=== PATIENT | male | born 1985 | race Caucasian/White ===

== ENCOUNTER → 2016-07-26 | Emergency (ER) | payer OTHER ==
[~2016-07-26] MED LIST: HYOSCYAMINE SULFATE 0.125 MG *ODT PO ONE; LIDOCAINE VISCOUS 2% ORAL/TOP 20 ML UNIT-DOSE CUP MM ONE; MAG HYDROX/AL HYDROX/SIMETH 30 ML UNIT-DOSE CUP ONE; MAG HYDROX/AL HYDROX/SIMETH 30 ML UNIT-DOSE CUP PO ONE; PANTOPRAZOLE SODIUM 100 ML IVPB ONE; PANTOPRAZOLE SODIUM 40 MG in SODIUM CHLORIDE 100 ML IVPB ONE; SODIUM CHLORIDE 1,000 ML IV STA
[2016-07-26 11:22] VITALS: BP 113/73; PULSE 110; TEMP 98.2; BMI 41.3
--- NOTE | 2016-07-26 12:08 | PDOC ---
History of Present Illness - General Chief Complaint: Pain Stated Complaint: LT SIDE/ ABD PAIN Time Seen by Provider: 07/26/16 11:26 History Source: Patient Exam Limitations: No Limitations - History of Present Illness Travel History: No Initial Comments: 07/26/16 12:13 Patient with complaints of left epigastric and left upper quadrant dull pain after eating tacos 2 days ago and continues intermittently worsened with meals. Patient states no history of gastritis GERD, or PUD but states history of pancreatitis a few years ago secondary to call use. Patient denies heavy alcohol now stating he only drinks on the weekends and denies fever, chills, nausea, dizziness, recent change in weight, recent travel, recent illness. Patient denies change in bowel pattern, change in urine pattern, medical history , rash, or radiation of pain. Timing/Duration: reports: constant Quality: reports: moderate, aching, dullness Abdominal Pain Onset Location: reports: [facility] Pain Radiation: reports: no radiation Activities at Onset: reports: eating Aggravating Factors: improves with: Eating Alleviating Factors: improves with: None Past History - Past Medical History Allergies/Adverse Reactions: Allergies Allergy/AdvReac Type Severity Reaction Status Date / Time No Known Allergies Allergy Verified 07/26/16 11:21 Home Medications: Ambulatory Orders Fenofibrate 160 mg PO DAILY 03/26/15 Metformin HCl [Glucophage -] 850 mg PO DAILY 03/26/15 Nifedipine [Nifedical Xl] 60 mg PO DAILY 03/26/15 Lisinopril [Prinivil] 20 mg PO DAILY #30 tablet 03/29/15 Glipizide [Glipizide ER] 5 mg PO DAILY 11/07/15 Pantoprazole Sodium [Protonix] 40 mg PO DAILY #30 tablet. 07/26/16 Diabetes: Yes GI Disorders: Yes (DIVERTICULITIS, pancreatitis) HTN: Yes Hypercholesterolemia: Yes Kidney Stones: Yes - Psycho/Social/Smoking Cessation Hx Anxiety: No Suicidal Ideation: No Smoking History: Former smoker Have you smoked in the past 12 months: No Number of Cigarettes Smoked Daily: 6 If you are a former smoker, when did you quit?: 2 yrs Information on smoking cessation initiated: No Hx Alcohol Use: No Drug/Substance Use Hx: No Substance Use Type: Alcohol Hx Substance Use Treatment: No Patient Lives Alone: No Review of Systems - Review of Systems Able to Perform ROS?: Yes Constitutional: No: Symptoms Reported HEENTM: No: Symptoms Reported Respiratory: No: Symptoms reported Cardiac (ROS): No: Symptoms Reported ABD/GI: Yes: Indigestion, Abdominal cramping. No: Constipated, Diarrhea, Nausea , Poor Appetite, Poor Fluid Intake : No: Symptoms Reported, Flank Pain Musculoskeletal: No: Symptoms Reported Integumentary: No: Symptoms Reported Neurological: No: Symptoms reported Endocrine: No: Symptoms Reported Hematologic/Lymphatic: No: Symptoms Reported *Physical Exam - Vital Signs Last Vital Signs Temp Pulse Resp BP Pulse Ox 98.2 F 110 H 18 113/73 100 07/26/16 11:14 07/26/16 11:14 07/26/16 11:14 07/26/16 11:14 07/26/16 11:14 - Physical Exam General Appearance: Yes: Nourished, Appropriately Dressed. No: Apparent Distress Neck: positive: Rigid Respiratory/Chest: positive: Lungs Clear, Normal Breath Sounds. negative: Chest Tender, Respiratory Distress, Accessory Muscle Use Cardiovascular: positive: Regular Rhythm, Regular Rate. negative: Murmur Gastrointestinal/Abdominal: positive: Soft, Tenderness (luq and mild left epigastric tenderness. No rebound/guarding) Musculoskeletal: negative: CVA Tenderness Extremity: positive: Normal Capillary Refill. negative: Pedal Edema Integumentary: positive: Normal Color, Warm, Moist Neurologic: positive: Motor Strength 5/5 (ambulatory ) ED Treatment Course - LABORATORY CBC & Chemistry Diagram: 07/26/16 11:51 07/26/16 11:51 Medical Decision Making - Medical Decision Making 07/26/16 12:12 Patient with left upper quadrant pain reproduced on exam. Patient concerning for PUD versus gastritis. Patient ordered for labs including lipase secondary history of pancreatitis along with GI cocktail and Protonix. 07/26/16 15:28 Laboratory Tests 07/26/16 07/26/16 07/26/16 11:51 11:51 11:51 WBC 9.7 Hgb 17.3 H Hct 50.0 H Sodium 136 Potassium 3.5 D Chloride 96 L Carbon Dioxide 26 Anion Gap 14 BUN 14 Creatinine 1.2 Creat Clearance w eGFR > 60 Random Glucose 237 H Calcium 8.3 L Magnesium 2.1 Total Bilirubin 1.0 AST 41 H D ALT 87 H Albumin 2.9 L Lipase 199 Urine Protein 3+ H Urine Glucose (UA) 3+ H Urine Ketones Trace H Ur Leukocyte Esterase Negative Urine WBC 2 Patient states feeling much better after receiving the medication. Patient be discharged home with recommendations to follow-up with his PCP secondary to elevated glucose and glucose noted in the urine despite being on Glucophage. Patient Ordered for 1 L of normal saline prior to discharge which will benefit the ketonuria elevated glucose, and tachycardia. Pt states does not drink enough fluids but does eat. Patient states is followed by Dr. Uribe for his colitis and pancreatitis whom I recommended that he follow-up with. 07/26/16 16:28 Repeat vitals, 92, 99% ra, 134/86, 20., 98.1. Pt states feeling better. Pt atr crackers and had water with ice *DC/Admit/Observation/Transfer Diagnosis at time of Disposition: Left upper quadrant pain - Discharge Dispostion Disposition: HOME Condition at time of disposition: Improved - Prescriptions Prescriptions: Pantoprazole Sodium [Protonix] 40 mg PO DAILY #30 tablet.dr - Referrals Referrals: Pj Gardner [Primary Care Provider] - - Patient Instructions Printed Discharge Instructions: DI for Gastritis Additional Instructions: Please follow-up with your PCP to discuss today's visit including your elevated glucose and glucose noted any urine despite being on Glucophage. I also recommended avoid spicy greasy food increase your water intake. Please follow-up with Dr. Uribe to discuss today's visit also. Please take Protonix as prescribed.
--- NOTE | 2016-07-26 12:41 | PDOC ---
*Physical Exam - Vital Signs Last Vital Signs Temp Pulse Resp BP Pulse Ox 98.2 F 110 H 18 113/73 100 07/26/16 11:14 07/26/16 11:14 07/26/16 11:14 07/26/16 11:14 07/26/16 11:14 ED Treatment Course - Medications Given in the ED: ED Medications Discontinued Medications Generic Name Dose Route Start Last Admin Trade Name Freq PRN Reason Stop Dose Admin Al Hydroxide/Mg Hydroxide 30 ml 07/26/16 11:46 07/26/16 12:39 Mylanta Oral Suspension - PO 07/26/16 11:47 30 ml ONCE ONE Administration Hyoscyamine Sulfate 0.125 mg 07/26/16 11:47 07/26/16 12:40 Levsin Odt - PO 07/26/16 11:48 0.125 mg ONCE ONE Administration Pantoprazole Sodium 40 mg/ 100 mls @ 200 mls/hr 07/26/16 11:46 07/26/16 12:03 Sodium Chloride IVPB 07/26/16 12:15 200 mls/hr ONCE ONE Administration Lidocaine HCl 10 ml 07/26/16 11:46 07/26/16 12:39 Xylocaine 2% Viscous Oral - MM 07/26/16 11:47 10 ml ONCE ONE Administration Medical Decision Making - Medical Decision Making 07/26/16 12:40 Pt seen by the Advanced Practice Provider under my direct supervision Ancillary studies reviewed I agree with plan as outlined by the Advanced Practice Provider RYAN Cabrera
[2016-07-26 13:04] LABS: BASOPHIL 0.8 % (0-2.0); EOSINOPHIL 1.9 % (0-4.5); MCH 28.9 pg (25.7-33.7); MCHC 34.7 g/dl (32.0-35.9); MEAN CELL VOLUME 83.4 fl (80-96); MEAN PLT VOLUME 9.3 fl (7.5-11.1); NEUTROPHILS 73.3 % (42.8-82.8); PLATELET COUNT 190 K/MM3 (134-434); RDW 14.1 % (11.9-15.9); WHITE BLOOD COUNT 9.7 K/mm3 (4.0-10.0)
[2016-07-26 13:08] LABS: URINE APPEARANCE CLEAR; URINE BILIRUBIN NEGATIVE (NEGATIVE); URINE BLOOD NEGATIVE (NEGATIVE); URINE COLOR YELLOW; URINE GLUCOSE (UA) 3+ (NEGATIVE); URINE KETONE TRACE (NEGATIVE); URINE LEUK ESTERASE NEGATIVE (NEGATIVE); URINE NITRITE NEGATIVE (NEGATIVE); URINE UROBILINOGEN NEGATIVE E.U./dl (0.2-1.0)
[2016-07-26 13:22] LABS: URINE PROTEIN 3+ (NEGATIVE)
[2016-07-26 13:39] LABS: ALBUMIN 2.9 g/dl (3.4-5.0); ALK PHOS 71 U/L (45-117); ANION GAP 14 (8-16); CALCIUM 8.3 mg/dL (8.5-10.1); CO2 26 mmol/L (21-32); COCKROFT - GAULT 182.39; CREATININE 1.2 mg/dL (0.7-1.3); GLUCOSE,RANDOM 237 mg/dL (74-106); TOT PROT 7.1 g/dl (6.4-8.2)
[2016-07-26 13:46] LABS: URINE BACTERIA RARE /hpf (NONE SEEN); URINE MUCUS RARE; URINE RBC 2 /hpf (0-3); URINE WBC 2 /hpf (3-5)
[2016-07-26 13:49] LABS: MAGNESIUM 2.1 mg/dL (1.8-2.4); SGOT/AST 41 U/L (15-37); SGPT/ALT 87 U/L (12-78)
== END | disposition home or self-care (01) ==
LOC: JER 10:55
PROC: 3E033GC Introduction of Other Therapeutic Substance into Peripheral Vein, Percutaneous Approach (ICD-10-PCS; principal; 2016-07-26)
DX: R10.12 Left upper quadrant pain (principal); I10 Essential (primary) hypertension; E78.00 Pure hypercholesterolemia, unspecified; E11.9 Type 2 diabetes mellitus without complications; Z79.84 Long term (current) use of oral hypoglycemic drugs; Z87.19 Personal history of other diseases of the digestive system; Z87.442 Personal history of urinary calculi
CPT/HCPCS: 36415; 80053; 81003; 81015; 83690; 83735; 85025; 96365; 99283-25

== ENCOUNTER 2020-11-24 14:01 | Inpatient (IN) | payer OTHER ==
[2020-11-24] MEDS ORDERED: ONDANSETRON 4 MG/2 ML VIAL IVPUSH ONE (15:41)
[2020-11-24] MEDS ORDERED: ONDANSETRON 4 MG/2 ML VIAL ONE (15:45)
[2020-11-24 15:50] LABS: EPI CELLS 14 /uL (0-25.1); HYALINE CASTS 1 /uL (0-3.1); PH,URINE 6.5 (5.0-8.0); URINE APPEARANCE CLEAR; URINE BACTERIA 9 /uL (0-1359); URINE BILIRUBIN NEGATIVE (NEGATIVE); URINE COLOR YELLOW; URINE GLUCOSE (UA) 3+ (NEGATIVE); URINE KETONE NEGATIVE (NEGATIVE); URINE LEUK ESTERASE NEGATIVE (NEGATIVE); URINE NITRITE NEGATIVE (NEGATIVE); URINE PROTEIN 4+ (NEGATIVE); URINE RBC 13 /uL (0-23.9); URINE UROBILINOGEN 0.2 mg/dL (0.2-1.0); URINE WBC 29 /uL (0-25.8)
[2020-11-24 15:51] LABS: BASO % 0.9 % (0-2.0); EOS % 4.2 % (0-4.5); HEMATOCRIT 33.4 % (35.4-49); HEMOGLOBIN 11.7 GM/dL (11.7-16.9); LYMPH % 16.1 % (8-40); MCH 29.9 pg (25.7-33.7); MEAN CELL VOLUME 85.6 fl (80-96); MEAN PLT VOLUME 7.9 fl (7.5-11.1); MONO % 6.6 % (3.8-10.2); NEUT % 72.2 % (42.8-82.8); PLATELET COUNT 198 10^3/uL (134-434); RDW 13.2 % (11.9-15.9); WHITE BLOOD COUNT 7.9 K/mm3 (4.0-10.0)
[2020-11-24 16:07] LABS: CHLORIDE 108 mmol/L (98-107); SODIUM 139 mmol/L (136-145)
[2020-11-24 16:09] LABS: ALBUMIN 2.4 g/dl (3.4-5.0); ANION GAP 12 MMOL/L (8-16); CO2 19 mmol/L (21-32)
[2020-11-24 16:10] LABS: BLOOD UREA NITROGEN 64.2 mg/dL (7-18); GLUCOSE,RANDOM 210 mg/dL (74-106); MAGNESIUM 1.9 mg/dL (1.8-2.4)
[2020-11-24 16:13] LABS: SGOT/AST 11 U/L (15-37)
[2020-11-24 16:14] LABS: BILIRUBIN,TOTAL 0.3 mg/dL (0.2-1); SGPT/ALT 23 U/L (13-61); TOT PROT 6.5 g/dl (6.4-8.2)
[2020-11-24 16:15] LABS: ALK PHOS 130 U/L (45-117)
[2020-11-24 16:32] LABS: CALCIUM 5.2 mg/dL (8.5-10.1); CREATININE 10.9 mg/dL (0.55-1.3)
[2020-11-24] MEDS ORDERED: CALCIUM CARBONATE 650 MG TABLET PO ONE (16:37)
[2020-11-24] MEDS ORDERED: CALCIUM GLUCONATE 10% - 1,000 MG/10 ML VIAL IVPB ONE (17:09)
[2020-11-24] MEDS ORDERED: CALCIUM GLUCONATE 10% - 1,000 MG/10 ML VIAL ONE (17:50)
[2020-11-24] MEDS: CALCIUM ACETATE 667 MG CAPSULE (FP) PO SCH (18:08)
[2020-11-24] MEDS: CALCIUM 500MG/VIT-D 200 UNITS COMBO TABLET (FP) PO SCH (18:09)
[2020-11-24 21:32] LABS: CHLORIDE 109 mmol/L (98-107); SODIUM 142 mmol/L (136-145)
[2020-11-24 21:34] LABS: ANION GAP 13 MMOL/L (8-16); CO2 19 mmol/L (21-32)
[2020-11-24 21:35] LABS: BLOOD UREA NITROGEN 63.5 mg/dL (7-18); GLUCOSE,RANDOM 150 mg/dL (74-106)
[2020-11-24 21:42] LABS: CALCIUM 5.8 mg/dL (8.5-10.1); CREATININE 10.5 mg/dL (0.55-1.3)
[2020-11-25] MEDS ORDERED: HEPARIN NA (PORCINE) 5,000 UNITS/ML 1ML VIAL SQ SCH (06:00)
[2020-11-25] MEDS: INSULIN SLIDING SCALE (NOVOLOG) 1 VIAL SQ SCH ×4 (08:03→22:12)
[2020-11-25 08:51] LABS: BASO % 1.1 % (0-2.0); EOS % 4.5 % (0-4.5); HEMATOCRIT 34.7 % (35.4-49); LYMPH % 16.9 % (8-40); MCH 29.5 pg (25.7-33.7); MCHC 34.6 g/dl (32.0-35.9); MEAN CELL VOLUME 85.2 fl (80-96); MEAN PLT VOLUME 7.8 fl (7.5-11.1); MONO % 5.5 % (3.8-10.2); PLATELET COUNT 192 10^3/uL (134-434); RBC 4.07 M/mm3 (4.00-5.60); RDW 13.2 % (11.9-15.9); WHITE BLOOD COUNT 6.6 K/mm3 (4.0-10.0)
[2020-11-25 09:04] LABS: CHLORIDE 108 mmol/L (98-107); SODIUM 138 mmol/L (136-145)
[2020-11-25 09:08] LABS: ALBUMIN 2.4 g/dl (3.4-5.0); ANION GAP 12 MMOL/L (8-16); BLOOD UREA NITROGEN 66.3 mg/dL (7-18); CO2 19 mmol/L (21-32); GLUCOSE,RANDOM 158 mg/dL (74-106)
[2020-11-25 09:09] LABS: PROTHROMBIN TIME (PATIENT) 12.3 SEC (9.7-13.0)
[2020-11-25 09:11] LABS: SGOT/AST 8 U/L (15-37); SGPT/ALT 20 U/L (13-61)
[2020-11-25 09:13] LABS: BILIRUBIN,TOTAL 0.4 mg/dL (0.2-1); TOT PROT 6.4 g/dl (6.4-8.2)
[2020-11-25 09:14] LABS: ALK PHOS 109 U/L (45-117)
[2020-11-25] MEDS: CALCIUM 500MG/VIT-D 200 UNITS COMBO TABLET (FP) PO SCH (09:17)
[2020-11-25] MEDS: CALCIUM ACETATE 667 MG CAPSULE (FP) PO SCH ×3 (09:17→17:44)
[2020-11-25 09:24] LABS: CALCIUM 6.1 mg/dL (8.5-10.1); CREATININE 10.8 mg/dL (0.55-1.3)
[2020-11-25] MEDS ORDERED: NIFEdipine E.R 60 MG TABLET PO SCH (10:00)
[2020-11-25] MEDS ORDERED: HEPARIN NA (PORCINE) 5,000 UNITS/ML 1ML VIAL ONE (10:56)
[2020-11-25] MEDS ORDERED: LIDOCAINE HCL 1%, 10 MG/ML (20ML VIAL) ONE (10:56)
[2020-11-25] MEDS ORDERED: BUPIVACAINE HCL/PF 0.5% (5MG/ML) 10 ML VIAL ONE ×2 (10:56→10:57)
[2020-11-25] MEDS ORDERED: SUCCINYLCHOLINE CHLORIDE 200 MG/10 ML SYRINGE ONE (11:17)
[2020-11-25] MEDS ORDERED: SODIUM CHLORIDE 250 ML IV PRN ×3 (11:47→13:46)
[2020-11-25] MEDS ORDERED: MIDAZOLAM HCL 2 MG/2 ML SINGLE DOSE VIAL ONE (11:49)
[2020-11-25] MEDS ORDERED: HEPARIN NA (PORCINE) 5,000 UNITS/ML 1ML VIAL SQ ONE (12:06)
[2020-11-25] MEDS ORDERED: ceFAZolin SODIUM 1 GM VIAL IVPB ONE (12:08)
[2020-11-25] MEDS ORDERED: CALCIUM GLUCONATE 10% - 1,000 MG/10 ML VIAL IVPB ONE ×2 (12:10→14:00)
[2020-11-25] MEDS ORDERED: LIDOCAINE HCL 1%, 10 MG/ML (20ML VIAL) INF ONE ×2 (12:13)
[2020-11-25] MEDS: HEPARIN NA (PORCINE) 5,000 UNITS/ML 1ML VIAL SQ SCH ×2 (15:54→22:13)
[2020-11-25] MEDS ORDERED: ACETAMINOPHEN 1000 MG/100 ML VIAL IVPB PRN (19:39)
[2020-11-25] MEDS ORDERED: ACETAMINOPHEN INJECTION 100 ML IVPB ONE (19:44)
[2020-11-26] MEDS: HEPARIN NA (PORCINE) 5,000 UNITS/ML 1ML VIAL SQ SCH ×3 (05:58→21:39)
[2020-11-26] MEDS ORDERED: hydrALAZINE HCL 10 MG TABLET PO ONE (06:27)
[2020-11-26] MEDS: INSULIN SLIDING SCALE (NOVOLOG) 1 VIAL SQ SCH ×4 (08:10→21:39)
[2020-11-26] MEDS: CALCIUM ACETATE 667 MG CAPSULE (FP) PO SCH ×3 (08:12→17:42)
[2020-11-26] MEDS: CALCIUM 500MG/VIT-D 200 UNITS COMBO TABLET (FP) PO SCH (09:24)
[2020-11-26 09:26] LABS: BASO % 0.8 % (0-2.0); EOS % 5.1 % (0-4.5); HEMATOCRIT 35.4 % (35.4-49); HEMOGLOBIN 12.4 GM/dL (11.7-16.9); LYMPH % 16.9 % (8-40); MCH 29.6 pg (25.7-33.7); MCHC 35.1 g/dl (32.0-35.9); MEAN CELL VOLUME 84.4 fl (80-96); MEAN PLT VOLUME 7.9 fl (7.5-11.1); MONO % 5.7 % (3.8-10.2); NEUT % 71.5 % (42.8-82.8); PLATELET COUNT 201 10^3/uL (134-434); RDW 13.1 % (11.9-15.9); WHITE BLOOD COUNT 5.9 K/mm3 (4.0-10.0)
[2020-11-26 09:50] LABS: BLOOD UREA NITROGEN 51.6 mg/dL (7-18)
[2020-11-26 09:51] LABS: ALBUMIN 2.4 g/dl (3.4-5.0); MAGNESIUM 2.1 mg/dL (1.8-2.4)
[2020-11-26 09:54] LABS: PHOSPHOROUS 5.4 mg/dL (2.5-4.9)
[2020-11-26 09:55] LABS: BILIRUBIN,TOTAL 0.5 mg/dL (0.2-1); TOT PROT 6.4 g/dl (6.4-8.2)
[2020-11-26 09:57] LABS: CALCIUM 6.6 mg/dL (8.5-10.1); CREATININE 9.1 mg/dL (0.55-1.3)
[2020-11-26] MEDS: INSULIN (LEVEMIR) 100 UNITS/ML UNITS SQ SCH ×2 (10:00→21:38)
[2020-11-26] MEDS ORDERED: NIFEdipine E.R 60 MG TABLET PO SCH (10:00)
[2020-11-26] MEDS: NIFEdipine E.R. 90 MG TABLET PO SCH (11:36)
[2020-11-26] MEDS: LABETALOL HCL 200 MG TABLET (FP) PO SCH ×2 (14:16→21:38)
[2020-11-26] MEDS: CALCITRIOL 0.25 MCG CAPSULE (FP) PO SCH (14:16)
[2020-11-27] MEDS: INSULIN SLIDING SCALE (NOVOLOG) 1 VIAL SQ SCH ×4 (06:16→21:29)
[2020-11-27] MEDS: HEPARIN NA (PORCINE) 5,000 UNITS/ML 1ML VIAL SQ SCH ×3 (06:16→21:30)
[2020-11-27] MEDS: CALCIUM ACETATE 667 MG CAPSULE (FP) PO SCH ×3 (08:46→17:41)
[2020-11-27] MEDS ORDERED: PT OWN MED DRAWER 7, Y5N ONE (09:00)
[2020-11-27] MEDS: CALCIUM 500MG/VIT-D 200 UNITS COMBO TABLET (FP) PO SCH (09:47)
[2020-11-27] MEDS: LABETALOL HCL 200 MG TABLET (FP) PO SCH ×2 (09:47→21:29)
[2020-11-27] MEDS: NIFEdipine E.R. 90 MG TABLET PO SCH (09:47)
[2020-11-27] MEDS: CALCITRIOL 0.25 MCG CAPSULE (FP) PO SCH (09:47)
[2020-11-27] MEDS: INSULIN (LEVEMIR) 100 UNITS/ML UNITS SQ SCH (09:47)
[2020-11-27] MEDS ORDERED: CALCITRIOL 0.25 MCG CAPSULE (FP) PO ONE (11:11)
[2020-11-27] MEDS ORDERED: INSULIN (LEVEMIR) 100 UNITS/ML UNITS SQ SCH (11:34)
[2020-11-28] MEDS: HEPARIN NA (PORCINE) 5,000 UNITS/ML 1ML VIAL SQ SCH ×2 (06:15→13:00)
[2020-11-28] MEDS: INSULIN SLIDING SCALE (NOVOLOG) 1 VIAL SQ SCH ×4 (06:15→21:52)
[2020-11-28 08:43] LABS: BASO % 0.7 % (0-2.0); EOS % 5.2 % (0-4.5); HEMOGLOBIN 12.2 GM/dL (11.7-16.9); MCH 29.4 pg (25.7-33.7); MCHC 34.8 g/dl (32.0-35.9); MEAN CELL VOLUME 84.5 fl (80-96); MEAN PLT VOLUME 7.4 fl (7.5-11.1); MONO % 5.2 % (3.8-10.2); NEUT % 72.9 % (42.8-82.8); PLATELET COUNT 209 10^3/uL (134-434); RBC 4.15 M/mm3 (4.00-5.60); WHITE BLOOD COUNT 6.8 K/mm3 (4.0-10.0)
[2020-11-28] MEDS: CALCIUM ACETATE 667 MG CAPSULE (FP) PO SCH ×3 (08:47→17:51)
[2020-11-28] MEDS: INSULIN (LEVEMIR) 100 UNITS/ML UNITS SQ SCH (08:48)
[2020-11-28 08:59] LABS: CHLORIDE 100 mmol/L (98-107); SODIUM 135 mmol/L (136-145)
[2020-11-28 09:05] LABS: ALBUMIN 2.6 g/dl (3.4-5.0); ANION GAP 13 MMOL/L (8-16); BLOOD UREA NITROGEN 51.4 mg/dL (7-18); CALCIUM 7.1 mg/dL (8.5-10.1); CO2 23 mmol/L (21-32); GLUCOSE,RANDOM 166 mg/dL (74-106); MAGNESIUM 2.1 mg/dL (1.8-2.4)
[2020-11-28 09:06] LABS: PHOSPHOROUS 6.5 mg/dL (2.5-4.9)
[2020-11-28 09:07] LABS: SGPT/ALT 16 U/L (13-61)
[2020-11-28 09:08] LABS: BILIRUBIN,TOTAL 0.3 mg/dL (0.2-1); SGOT/AST 10 U/L (15-37); TOT PROT 6.5 g/dl (6.4-8.2)
[2020-11-28 09:09] LABS: ALK PHOS 107 U/L (45-117)
[2020-11-28 09:15] LABS: CREATININE 9.8 mg/dL (0.55-1.3)
[2020-11-28 10:09] LABS: ANTIGLOMERULAR BASEMENT MEN.AB 3 units (0-20)
[2020-11-28] MEDS ORDERED: SODIUM CHLORIDE 250 ML IV PRN (11:17)
[2020-11-28] MEDS: NIFEdipine E.R. 90 MG TABLET PO SCH (12:52)
[2020-11-28] MEDS: LABETALOL HCL 200 MG TABLET (FP) PO SCH ×2 (12:55→21:51)
[2020-11-28] MEDS ORDERED: HEPARIN NA (PORCINE) 5,000 UNITS/ML 1ML VIAL IVPUSH ONE (13:30)
[2020-11-28 16:08] LABS: ATYPICAL pANCA <1:20 titer (Neg:<1:20); C-ANCA <1:20 titer (Neg:<1:20)
[2020-11-28] MEDS: CALCITRIOL 0.25 MCG CAPSULE (FP) PO SCH (17:51)
[2020-11-28] MEDS: CALCIUM 500MG/VIT-D 200 UNITS COMBO TABLET (FP) PO SCH (17:52)
[2020-11-29] MEDS: INSULIN SLIDING SCALE (NOVOLOG) 1 VIAL SQ SCH ×4 (06:26→21:36)
[2020-11-29] MEDS ORDERED: PT OWN MED DRAWER 7, Y5N ONE (08:47)
[2020-11-29] MEDS: CALCIUM ACETATE 667 MG CAPSULE (FP) PO SCH ×3 (09:03→17:43)
[2020-11-29] MEDS: CALCITRIOL 0.25 MCG CAPSULE (FP) PO SCH (09:23)
[2020-11-29] MEDS: LABETALOL HCL 200 MG TABLET (FP) PO SCH ×2 (09:23→21:35)
[2020-11-29] MEDS: CALCIUM 500MG/VIT-D 200 UNITS COMBO TABLET (FP) PO SCH (09:23)
[2020-11-29] MEDS: NIFEdipine E.R. 90 MG TABLET PO SCH (09:23)
[2020-11-29 10:29] LABS: BASO % 0.8 % (0-2.0); EOS % 5.6 % (0-4.5); HEMATOCRIT 34.6 % (35.4-49); HEMOGLOBIN 12.1 GM/dL (11.7-16.9); MCH 29.8 pg (25.7-33.7); MCHC 35.1 g/dl (32.0-35.9); MEAN PLT VOLUME 7.5 fl (7.5-11.1); MONO % 6.1 % (3.8-10.2); NEUT % 69.5 % (42.8-82.8); PLATELET COUNT 226 10^3/uL (134-434); RBC 4.06 M/mm3 (4.00-5.60); RDW 12.9 % (11.9-15.9); WHITE BLOOD COUNT 6.9 K/mm3 (4.0-10.0)
[2020-11-29 10:50] LABS: CHLORIDE 100 mmol/L (98-107); SODIUM 135 mmol/L (136-145)
[2020-11-29 10:53] LABS: ALBUMIN 2.8 g/dl (3.4-5.0); ANION GAP 9 MMOL/L (8-16); BLOOD UREA NITROGEN 43.1 mg/dL (7-18); CALCIUM 7.8 mg/dL (8.5-10.1); CO2 27 mmol/L (21-32); GLUCOSE,RANDOM 165 mg/dL (74-106)
[2020-11-29 10:54] LABS: MAGNESIUM 2.1 mg/dL (1.8-2.4)
[2020-11-29 10:56] LABS: PHOSPHOROUS 6.1 mg/dL (2.5-4.9); SGOT/AST 10 U/L (15-37); SGPT/ALT 15 U/L (13-61)
[2020-11-29 10:57] LABS: BILIRUBIN,TOTAL 0.4 mg/dL (0.2-1)
[2020-11-29 10:58] LABS: TOT PROT 6.8 g/dl (6.4-8.2)
[2020-11-29 10:59] LABS: ALK PHOS 108 U/L (45-117)
[2020-11-29 11:03] LABS: CREATININE 8.5 mg/dL (0.55-1.3)
[2020-11-29] MEDS ORDERED: SODIUM CHLORIDE 250 ML IV PRN (15:28)
[2020-11-29] MEDS: HEPARIN NA (PORCINE) 5,000 UNITS/ML 1ML VIAL SQ SCH (21:36)
[2020-11-29] MEDS: INSULIN (LEVEMIR) 100 UNITS/ML UNITS SQ SCH (21:36)
[2020-11-30] MEDS: INSULIN (LEVEMIR) 100 UNITS/ML UNITS SQ SCH ×2 (06:23→22:08)
[2020-11-30] MEDS: HEPARIN NA (PORCINE) 5,000 UNITS/ML 1ML VIAL SQ SCH ×3 (06:23→22:09)
[2020-11-30] MEDS: INSULIN SLIDING SCALE (NOVOLOG) 1 VIAL SQ SCH ×4 (06:23→22:08)
[2020-11-30] MEDS ORDERED: PT OWN MED DRAWER 7, Y5N ONE ×2 (06:42→13:37)
[2020-11-30 08:27] LABS: BASO % 0.7 % (0-2.0); EOS % 6.2 % (0-4.5); HEMATOCRIT 34.4 % (35.4-49); HEMOGLOBIN 11.9 GM/dL (11.7-16.9); LYMPH % 21.1 % (8-40); MCH 29.5 pg (25.7-33.7); MCHC 34.5 g/dl (32.0-35.9); MEAN CELL VOLUME 85.3 fl (80-96); MEAN PLT VOLUME 7.6 fl (7.5-11.1); PLATELET COUNT 219 10^3/uL (134-434); RBC 4.03 M/mm3 (4.00-5.60); RDW 13.2 % (11.9-15.9); WHITE BLOOD COUNT 6.7 K/mm3 (4.0-10.0)
[2020-11-30 08:48] LABS: CHLORIDE 100 mmol/L (98-107); SODIUM 136 mmol/L (136-145)
[2020-11-30] MEDS: CALCIUM ACETATE 667 MG CAPSULE (FP) PO SCH ×3 (08:50→18:45)
[2020-11-30 08:51] LABS: CALCIUM 7.6 mg/dL (8.5-10.1)
[2020-11-30 08:52] LABS: ALBUMIN 2.8 g/dl (3.4-5.0); ANION GAP 11 MMOL/L (8-16); BLOOD UREA NITROGEN 52.3 mg/dL (7-18); CO2 26 mmol/L (21-32); GLUCOSE,RANDOM 152 mg/dL (74-106); MAGNESIUM 2.1 mg/dL (1.8-2.4)
[2020-11-30 08:55] LABS: PHOSPHOROUS 6.5 mg/dL (2.5-4.9); SGOT/AST 13 U/L (15-37); SGPT/ALT 18 U/L (13-61)
[2020-11-30 08:58] LABS: BILIRUBIN,TOTAL 0.3 mg/dL (0.2-1); TOT PROT 6.6 g/dl (6.4-8.2)
[2020-11-30 08:59] LABS: ALK PHOS 101 U/L (45-117)
[2020-11-30 09:07] LABS: CREATININE 9.4 mg/dL (0.55-1.3)
[2020-11-30] MEDS ORDERED: NIFEDIPINE 60 MG PO SCH (10:00)
[2020-11-30] MEDS: LABETALOL HCL 200 MG TABLET (FP) PO SCH ×2 (10:34→22:09)
[2020-11-30] MEDS: NIFEdipine E.R. 90 MG TABLET PO SCH (13:39)
[2020-11-30] MEDS: CALCITRIOL 0.25 MCG CAPSULE (FP) PO SCH (13:40)
[2020-11-30] MEDS: PANTOPRAZOLE 40 MG TABLET PO SCH (13:40)
[2020-11-30] MEDS: CALCIUM 500MG/VIT-D 200 UNITS COMBO TABLET (FP) PO SCH (13:40)
[2020-11-30] MEDS: FENOFIBRIC ACID 135 MG CAP PO SCH (13:40)
[2020-12-01] MEDS: INSULIN (LEVEMIR) 100 UNITS/ML UNITS SQ SCH ×2 (06:02→21:39)
[2020-12-01] MEDS: HEPARIN NA (PORCINE) 5,000 UNITS/ML 1ML VIAL SQ SCH ×3 (06:02→21:38)
[2020-12-01] MEDS: INSULIN SLIDING SCALE (NOVOLOG) 1 VIAL SQ SCH ×4 (06:03→21:36)
[2020-12-01] MEDS: CALCIUM ACETATE 667 MG CAPSULE (FP) PO SCH ×3 (08:11→17:07)
[2020-12-01] MEDS ORDERED: PT OWN MED DRAWER 7, Y5N ONE (09:33)
[2020-12-01] MEDS: FENOFIBRIC ACID 135 MG CAP PO SCH (09:45)
[2020-12-01] MEDS: CALCIUM 500MG/VIT-D 200 UNITS COMBO TABLET (FP) PO SCH (09:46)
[2020-12-01] MEDS: NIFEdipine E.R. 90 MG TABLET PO SCH (09:46)
[2020-12-01] MEDS: LABETALOL HCL 200 MG TABLET (FP) PO SCH ×2 (09:46→21:39)
[2020-12-01] MEDS: PANTOPRAZOLE 40 MG TABLET PO SCH (09:46)
[2020-12-01] MEDS: CALCITRIOL 0.25 MCG CAPSULE (FP) PO SCH (09:46)
[2020-12-01 09:47] LABS: BASO % 0.9 % (0-2.0); EOS % 6.5 % (0-4.5); HEMATOCRIT 35.3 % (35.4-49); HEMOGLOBIN 12.2 GM/dL (11.7-16.9); LYMPH % 23.1 % (8-40); MCH 29.5 pg (25.7-33.7); MCHC 34.6 g/dl (32.0-35.9); MEAN CELL VOLUME 85.1 fl (80-96); MEAN PLT VOLUME 7.6 fl (7.5-11.1); MONO % 5.6 % (3.8-10.2); NEUT % 63.9 % (42.8-82.8); PLATELET COUNT 235 10^3/uL (134-434); RBC 4.15 M/mm3 (4.00-5.60); RDW 12.8 % (11.9-15.9); WHITE BLOOD COUNT 6.1 K/mm3 (4.0-10.0)
[2020-12-01 10:07] LABS: CHLORIDE 97 mmol/L (98-107); SODIUM 135 mmol/L (136-145)
[2020-12-01 10:11] LABS: ANION GAP 9 MMOL/L (8-16); BLOOD UREA NITROGEN 42.6 mg/dL (7-18); CO2 29 mmol/L (21-32); GLUCOSE,RANDOM 151 mg/dL (74-106); MAGNESIUM 2.3 mg/dL (1.8-2.4)
[2020-12-01 10:14] LABS: SGOT/AST 15 U/L (15-37); SGPT/ALT 22 U/L (13-61)
[2020-12-01 10:15] LABS: BILIRUBIN,TOTAL 0.6 mg/dL (0.2-1)
[2020-12-01 10:17] LABS: ALK PHOS 108 U/L (45-117)
[2020-12-01 10:35] LABS: CREATININE 7.9 mg/dL (0.55-1.3); PHOSPHOROUS 5.6 mg/dL (2.5-4.9)
[2020-12-01] MEDS ORDERED: INSULIN SLIDING SCALE (NOVOLOG) 1 VIAL SQ ONE (11:51)
[2020-12-01] MEDS ORDERED: POTASSIUM CHLORIDE ORAL LIQUID 20 MEQ/15 ML PO ONE (12:02)
[2020-12-01] MEDS ORDERED: SODIUM CHLORIDE 250 ML IV PRN (13:46)
[2020-12-01 15:11] VITALS: BMI 35.4
[2020-12-02] MEDS: INSULIN SLIDING SCALE (NOVOLOG) 1 VIAL SQ SCH ×2 (06:40→13:36)
[2020-12-02] MEDS: HEPARIN NA (PORCINE) 5,000 UNITS/ML 1ML VIAL SQ SCH ×2 (06:40→13:36)
[2020-12-02] MEDS: INSULIN (LEVEMIR) 100 UNITS/ML UNITS SQ SCH (06:40)
[2020-12-02 08:12] LABS: BASO % 0.8 % (0-2.0); EOS % 6.7 % (0-4.5); HEMATOCRIT 34.3 % (35.4-49); HEMOGLOBIN 11.9 GM/dL (11.7-16.9); LYMPH % 24.9 % (8-40); MCH 29.5 pg (25.7-33.7); MCHC 34.7 g/dl (32.0-35.9); MEAN CELL VOLUME 84.8 fl (80-96); MEAN PLT VOLUME 7.6 fl (7.5-11.1); NEUT % 62.6 % (42.8-82.8); PLATELET COUNT 231 10^3/uL (134-434); RBC 4.04 M/mm3 (4.00-5.60); RDW 12.6 % (11.9-15.9); WHITE BLOOD COUNT 5.5 K/mm3 (4.0-10.0)
[2020-12-02 08:41] LABS: CHLORIDE 101 mmol/L (98-107); SODIUM 136 mmol/L (136-145)
[2020-12-02 09:00] LABS: ALBUMIN 2.9 g/dl (3.4-5.0); ANION GAP 11 MMOL/L (8-16); BLOOD UREA NITROGEN 52.1 mg/dL (7-18); CALCIUM 7.9 mg/dL (8.5-10.1); CO2 25 mmol/L (21-32); GLUCOSE,RANDOM 143 mg/dL (74-106); MAGNESIUM 2.5 mg/dL (1.8-2.4)
[2020-12-02 09:03] LABS: SGOT/AST 14 U/L (15-37)
[2020-12-02 09:04] LABS: PHOSPHOROUS 5.4 mg/dL (2.5-4.9); SGPT/ALT 20 U/L (13-61)
[2020-12-02 09:05] LABS: BILIRUBIN,TOTAL 0.4 mg/dL (0.2-1)
[2020-12-02 09:06] LABS: ALK PHOS 97 U/L (45-117); TOT PROT 6.8 g/dl (6.4-8.2)
[2020-12-02 09:10] LABS: CREATININE 9.1 mg/dL (0.55-1.3)
[2020-12-02] MEDS ORDERED: PT OWN MED DRAWER 7, Y5N ONE (09:25)
[2020-12-02] MEDS: PANTOPRAZOLE 40 MG TABLET PO SCH (09:29)
[2020-12-02] MEDS: CALCITRIOL 0.25 MCG CAPSULE (FP) PO SCH (09:29)
[2020-12-02] MEDS: FENOFIBRIC ACID 135 MG CAP PO SCH (09:29)
[2020-12-02] MEDS: CALCIUM ACETATE 667 MG CAPSULE (FP) PO SCH ×2 (09:29→13:35)
[2020-12-02] MEDS: CALCIUM 500MG/VIT-D 200 UNITS COMBO TABLET (FP) PO SCH (09:29)
[2020-12-02] MEDS: LABETALOL HCL 200 MG TABLET (FP) PO SCH (09:50)
[2020-12-02] MEDS: NIFEdipine E.R. 90 MG TABLET PO SCH (09:50)
[2020-12-02 10:08] VITALS: PULSE 83; TEMP 98.3
[2020-12-02 13:12] VITALS: BP 155/101
== END 2020-12-02 14:29 | disposition home or self-care (01) | DRG 470 ==
LOC: JER 14:01 → JERBED 17:45 → J4W 11-25 05:10 → J5S 11-27 14:14
PROC: B513ZZA Fluoroscopy of Right Jugular Veins, Guidance (ICD-10-PCS; 2020-11-25)
PROC: 05HM33Z Insertion of Infusion Device into Right Internal Jugular Vein, Percutaneous Approach (ICD-10-PCS; principal; 2020-11-25 11:30)
PROC: 0TB03ZX Excision of Right Kidney, Percutaneous Approach, Diagnostic (ICD-10-PCS; 2020-11-29)
PROC: BT41ZZZ Ultrasonography of Right Kidney (ICD-10-PCS; 2020-11-29)
PROC: 5A1D70Z Performance of Urinary Filtration, Intermittent, Less than 6 Hours Per Day (ICD-10-PCS; 2020-12-02)
DX: I12.0 Hypertensive chronic kidney disease with stage 5 chronic kidney disease or end stage renal disease (principal); N17.9 Acute kidney failure, unspecified; E11.22 Type 2 diabetes mellitus with diabetic chronic kidney disease; E83.51 Hypocalcemia; N18.6 End stage renal disease; E66.9 Obesity, unspecified; E78.5 Hyperlipidemia, unspecified; F10.20 Alcohol dependence, uncomplicated; N20.0 Calculus of kidney; Z99.2 Dependence on renal dialysis; Z68.35 Body mass index [BMI] 35.0-35.9, adult; E83.39 Other disorders of phosphorus metabolism
CPT/HCPCS: 36415; 50200; 71045-TC-FY; 71046-TC-FY; 76000-TC-FY; 76775-TC; 76856-TC; 76942-TC; 80048; 80053; 81003; 82570; 82962; 83516; 83520; 83605; 83735; 84100; 84155; 84165; 84300; 85025; 85610; 86038; 86160; 86225; 86256; 86706; 87086; 87340; 87517; 87522; 88300-TC; 88329; 93005; 93010; 94760; 99285-25; C9803; J0131; J1644; U0003; U0005

== ENCOUNTER 2021-04-25 14:23 | Observation (INO) | payer OTHER ==
[2021-04-25 14:38] VITALS: BMI 31.6
[2021-04-25 15:11] LABS: BASO % 1.1 % (0-2.0); EOS % 1.4 % (0-4.5); HEMATOCRIT 29.3 % (35.4-49); HEMOGLOBIN 9.8 GM/dL (11.7-16.9); LYMPH % 11.4 % (8-40); MCH 27.7 pg (25.7-33.7); MCHC 33.4 g/dl (32.0-35.9); MEAN CELL VOLUME 83.1 fl (80-96); MEAN PLT VOLUME 8.2 fl (7.5-11.1); MONO % 4.3 % (3.8-10.2); NEUT % 81.8 % (42.8-82.8); PLATELET COUNT 206 10^3/uL (134-434); RBC 3.52 M/mm3 (4.00-5.60); RDW 14.5 % (11.9-15.9); WHITE BLOOD COUNT 10.8 K/mm3 (4.0-10.0)
[2021-04-25 15:13] LABS: VENOUS BASE EXCESS -10.2 mmol/L (-2-2); VENOUS O2 SATURATION 90.6 % (70-80); VENOUS PCO2 28.3 mmHg (38-52); VENOUS PH 7.327 (7.310-7.410)
[2021-04-25 15:17] LABS: INR 1.1 (0.83-1.09); PROTHROMBIN TIME (PATIENT) 12.7 SEC (9.7-13.0)
[2021-04-25 15:32] LABS: CHLORIDE 102 mmol/L (98-107); SODIUM 136 mmol/L (136-145)
[2021-04-25 15:33] LABS: CALCIUM 7.9 mg/dL (8.5-10.1)
[2021-04-25 15:34] LABS: ALBUMIN 3.8 g/dl (3.4-5.0); ANION GAP 16 MMOL/L (8-16); BLOOD UREA NITROGEN 85.5 mg/dL (7-18); CO2 18 mmol/L (21-32); GLUCOSE,RANDOM 78 mg/dL (74-106); MAGNESIUM 2.8 mg/dL (1.8-2.4)
[2021-04-25 15:37] LABS: SGOT/AST 11 U/L (15-37); SGPT/ALT 24 U/L (13-61)
[2021-04-25 15:39] LABS: BILIRUBIN,TOTAL 0.4 mg/dL (0.2-1); TOT PROT 7.4 g/dl (6.4-8.2)
[2021-04-25 15:40] LABS: ALK PHOS 94 U/L (45-117)
[2021-04-25 15:42] LABS: N-TERMINAL BNP 6320.4 pg/ml (5-125)
[2021-04-25 15:44] LABS: CREATININE 16.4 mg/dL (0.55-1.3)
[2021-04-25] MEDS ORDERED: FUROSEMIDE 40 MG/4 ML INJECTABLE VIAL IVPUSH ONE (16:15)
[2021-04-25] MEDS ORDERED: SODIUM CHLORIDE 250 ML IV PRN (16:26)
[2021-04-25] MEDS ORDERED: FUROSEMIDE 40 MG/4 ML INJECTABLE VIAL ONE (16:41)
[2021-04-25] MEDS ORDERED: CALCIUM ACETATE 667 MG CAPSULE (FP) PO SCH (17:30)
[2021-04-25 18:35] VITALS: TEMP 98.2
[2021-04-26] MEDS ORDERED: HEPARIN NA (PORCINE) 5,000 UNITS/ML 1ML VIAL ONE (06:00)
[2021-04-26] MEDS ORDERED: LABETALOL HCL 100 MG TABLET (FP) ONE (06:00)
[2021-04-26] MEDS: HEPARIN NA (PORCINE) 5,000 UNITS/ML 1ML VIAL SQ SCH ×2 (06:06→06:07)
[2021-04-26] MEDS: LABETALOL HCL 200 MG TABLET (FP) PO SCH ×2 (06:06→10:08)
[2021-04-26] MEDS ORDERED: SODIUM CHLORIDE 250 ML IV PRN (06:24)
[2021-04-26] MEDS ORDERED: INSULIN SLIDING SCALE (NOVOLOG) 1 VIAL SQ SCH (07:00)
[2021-04-26 08:38] LABS: EOS % 1.6 % (0-4.5); HEMATOCRIT 26.2 % (35.4-49); HEMOGLOBIN 9.2 GM/dL (11.7-16.9); LYMPH % 13.6 % (8-40); MCH 28.4 pg (25.7-33.7); MEAN CELL VOLUME 81.3 fl (80-96); MONO % 7.3 % (3.8-10.2); NEUT % 76.5 % (42.8-82.8); PLATELET COUNT 146 10^3/uL (134-434); RBC 3.22 M/mm3 (4.00-5.60); RDW 14.8 % (11.9-15.9); WHITE BLOOD COUNT 4.8 K/mm3 (4.0-10.0)
[2021-04-26 09:05] LABS: CHLORIDE 101 mmol/L (98-107); SODIUM 140 mmol/L (136-145)
[2021-04-26 09:07] LABS: ALBUMIN 3.2 g/dl (3.4-5.0); ANION GAP 13 MMOL/L (8-16); CALCIUM 7.3 mg/dL (8.5-10.1); CO2 26 mmol/L (21-32); GLUCOSE,RANDOM 81 mg/dL (74-106); MAGNESIUM 2.7 mg/dL (1.8-2.4)
[2021-04-26 09:09] LABS: TRIGLYCERIDES 148 mg/dL (0-150)
[2021-04-26 09:10] LABS: PHOSPHOROUS 8.1 mg/dL (2.5-4.9); SGOT/AST 7 U/L (15-37); SGPT/ALT 20 U/L (13-61)
[2021-04-26 09:11] LABS: CHOLESTEROL 169 mg/dL (50-200); LDL CHOLESTEROL (ONLY SJRH) 107 mg/dL (5-100)
[2021-04-26 09:12] LABS: BILIRUBIN,TOTAL 0.6 mg/dL (0.2-1); TOT PROT 6.2 g/dl (6.4-8.2)
[2021-04-26 09:13] LABS: ALK PHOS 81 U/L (45-117)
[2021-04-26 09:14] LABS: BLOOD UREA NITROGEN 58.5 mg/dL (7-18); CREATININE 13.1 mg/dL (0.55-1.3)
[2021-04-26 09:15] LABS: HDL CHOLESTEROL 37 mg/dL (40-60)
[2021-04-26] MEDS ORDERED: NIFEdipine E.R 60 MG TABLET PO SCH (10:00)
[2021-04-26 13:04] VITALS: BP 101/51; PULSE 91
[2021-04-26] MEDS ORDERED: CALCIUM ACETATE 667 MG CAPSULE (FP) PO SCH (17:30)
== END 2021-04-26 15:34 | disposition home or self-care (01) ==
LOC: JER 14:23 → INTOOBSV 16:28 → JERBED 16:28 → UNDOADMOB 16:28 → JERBED 04-26 10:21 → INTOOBSV 04-26 12:27 → OBSVTOIN 04-26 12:27
PROVIDERS: ADMIT Internal Medicine; ATTEND Internal Medicine
PROC: 3E033GC Introduction of Other Therapeutic Substance into Peripheral Vein, Percutaneous Approach (ICD-10-PCS; principal; 2021-04-26)
DX: I13.11 Hypertensive heart and chronic kidney disease without heart failure, with stage 5 chronic kidney disease, or end stage renal disease (principal); E11.22 Type 2 diabetes mellitus with diabetic chronic kidney disease; N18.6 End stage renal disease; Z99.2 Dependence on renal dialysis; J96.90 Respiratory failure, unspecified, unspecified whether with hypoxia or hypercapnia; Z99.81 Dependence on supplemental oxygen; N20.0 Calculus of kidney; Z91.15 Patient's noncompliance with renal dialysis
CPT/HCPCS: 36415; 71045-TC-FY; 80053; 80061; 82803; 82962; 83036; 83735; 83880; 84100; 84484; 85025; 85610; 85730; 86803; 87340; 93005; 93010; 94660; 96374; 99285-25; C9803; G0378; J1644; U0003; U0005

== ENCOUNTER 2022-07-03 00:06 | Observation (INO) | payer OTHER ==
[2022-07-03 00:23] VITALS: BMI 30.3
[2022-07-03 01:53] LABS: BASO % 1.7 % (0-2.0); EOS % 9.7 % (0-4.5); HEMATOCRIT 35.5 % (35.4-49); HEMOGLOBIN 11.8 GM/dL (11.7-16.9); MCH 25.6 pg (25.7-33.7); MCHC 33.2 g/dl (32.0-35.9); MEAN CELL VOLUME 77.1 fl (80-96); MONO % 9.2 % (3.8-10.2); NEUT % 61.4 % (42.8-82.8); PLATELET COUNT 149 10^3/uL (134-434); WHITE BLOOD COUNT 4.3 K/mm3 (4.0-10.0)
[2022-07-03 02:11] LABS: CHLORIDE 100 mmol/L (98-107); SODIUM 138 mmol/L (136-145)
[2022-07-03 02:13] LABS: CALCIUM 8.9 mg/dL (8.5-10.1)
[2022-07-03 02:14] LABS: ALBUMIN 3.3 g/dl (3.4-5.0); BLOOD UREA NITROGEN 93.5 mg/dL (7-18); CO2 29 mmol/L (21-32); GLUCOSE,RANDOM 90 mg/dL (74-106); MAGNESIUM 2.8 mg/dL (1.8-2.4)
[2022-07-03 02:17] LABS: PHOSPHOROUS 8.4 mg/dL (2.5-4.9); SGOT/AST 32 U/L (15-37); SGPT/ALT 39 U/L (13-61)
[2022-07-03 02:18] LABS: BILIRUBIN,TOTAL 0.5 mg/dL (0.2-1)
[2022-07-03 02:19] LABS: TOT PROT 7.4 g/dl (6.4-8.2)
[2022-07-03 02:20] LABS: ALK PHOS 141 U/L (45-117)
[2022-07-03] MEDS ORDERED: CALCIUM GLUCONATE 10% - 1,000 MG/10 ML VIAL IVPB ONE (02:20)
[2022-07-03] MEDS ORDERED: SODIUM ZIRCONIUM CYCLOSILICATE (LOKELMA) 5 GM PACKET PO ONE ×2 (02:21→04:11)
[2022-07-03] MEDS ORDERED: CALCIUM GLUCONATE 10% - 1,000 MG/10 ML VIAL ONE (02:29)
[2022-07-03] MEDS ORDERED: SODIUM ZIRCONIUM CYCLOSILICATE (LOKELMA) 5 GM PACKET ONE ×2 (02:29→05:44)
[2022-07-03 02:45] LABS: ANION GAP 10 MMOL/L (8-16); CREATININE 14.6 mg/dL (0.55-1.3); POTASSIUM 6.6 mmol/L (3.5-5.1)
[2022-07-03] MEDS ORDERED: INSULIN REGULAR HUMAN 100 UNITS/ML *VIAL IVPUSH ONE (02:46)
[2022-07-03] MEDS ORDERED: DEXTROSE 50%-WATER - 25 GM/50 ML VIAL IVPUSH ONE ×3 (02:46→07:23)
[2022-07-03] MEDS ORDERED: DEXTROSE 50%-WATER 25 GM/50 ML DISP.SYRIN ONE ×2 (02:58→07:32)
[2022-07-03 05:24] LABS: BASO % 1.5 % (0-2.0); HEMATOCRIT 31.8 % (35.4-49); HEMOGLOBIN 10.9 GM/dL (11.7-16.9); LYMPH % 20.6 % (8-40); MCH 26.3 pg (25.7-33.7); MCHC 34.3 g/dl (32.0-35.9); MEAN CELL VOLUME 76.7 fl (80-96); MEAN PLT VOLUME 7.8 fl (7.5-11.1); MONO % 9.6 % (3.8-10.2); NEUT % 58.3 % (42.8-82.8); PLATELET COUNT 138 10^3/uL (134-434); RBC 4.14 M/mm3 (4.00-5.60); RDW 18.6 % (11.9-15.9); WHITE BLOOD COUNT 4.1 K/mm3 (4.0-10.0)
[2022-07-03 05:27] LABS: CHLORIDE 99 mmol/L (98-107); SODIUM 135 mmol/L (136-145)
[2022-07-03 05:29] LABS: BLOOD UREA NITROGEN 93.5 mg/dL (7-18); CALCIUM 8.2 mg/dL (8.5-10.1); CO2 25 mmol/L (21-32); GLUCOSE,RANDOM 142 mg/dL (74-106)
[2022-07-03 05:30] LABS: MAGNESIUM 2.8 mg/dL (1.8-2.4)
[2022-07-03 05:33] LABS: PHOSPHOROUS 7.7 mg/dL (2.5-4.9)
[2022-07-03 05:36] LABS: ANION GAP 11 MMOL/L (8-16); CREATININE 14.6 mg/dL (0.55-1.3); POTASSIUM 6.3 mmol/L (3.5-5.1)
[2022-07-03] MEDS ORDERED: HEPARIN NA (PORCINE) 5,000 UNITS/ML 1ML VIAL ONE (05:44)
[2022-07-03] MEDS ORDERED: HEPARIN NA (PORCINE) 5,000 UNITS/ML 1ML VIAL SQ SCH (06:00)
[2022-07-03] MEDS ORDERED: HEPARIN NA (PORCINE) 5,000 UNITS/ML 1ML VIAL IVPUSH ONE (07:01)
[2022-07-03] MEDS ORDERED: SODIUM CHLORIDE 250 ML IV PRN (07:01)
[2022-07-03] MEDS: INSULIN SLIDING SCALE (NOVOLOG) 1 VIAL SQ SCH ×2 (07:15→11:34)
[2022-07-03] MEDS ORDERED: CALCIUM ACETATE 667 MG CAPSULE (FP) PO SCH (08:00)
[2022-07-03] MEDS ORDERED: MINOXIDIL 10 MG TABLET PO SCH (10:00)
[2022-07-03] MEDS ORDERED: NIFEdipine E.R 60 MG TABLET PO SCH (10:00)
[2022-07-03] MEDS ORDERED: PANTOPRAZOLE 40 MG TABLET PO SCH (10:00)
[2022-07-03 15:02] VITALS: BP 163/96; PULSE 64; RESP 20; TEMP 97.9
== END 2022-07-03 15:05 | disposition home or self-care (01) ==
LOC: JER 00:06 → INTOOBSV 02:53 → JERBED 02:53
PROVIDERS: ADMIT Internal Medicine; ATTEND Internal Medicine
PROC: 3E033GC Introduction of Other Therapeutic Substance into Peripheral Vein, Percutaneous Approach (ICD-10-PCS; principal; 2022-07-03)
PROC: 3E023GC Introduction of Other Therapeutic Substance into Muscle, Percutaneous Approach (ICD-10-PCS; 2022-07-03)
DX: Z99.2 Dependence on renal dialysis (principal); E11.22 Type 2 diabetes mellitus with diabetic chronic kidney disease; I13.11 Hypertensive heart and chronic kidney disease without heart failure, with stage 5 chronic kidney disease, or end stage renal disease; N18.6 End stage renal disease; Z87.891 Personal history of nicotine dependence; E78.00 Pure hypercholesterolemia, unspecified; N20.0 Calculus of kidney; K21.9 Gastro-esophageal reflux disease without esophagitis
CPT/HCPCS: 36415; 71045-TC-FY; 80048; 80053; 82962; 83036; 83735; 84100; 85025; 86803; 86850; 86900; 86901; 87340; 93005; 93010; 99285-25; C9803-CS; G0378; J1644; U0003; U0005

== ENCOUNTER 2022-07-05 00:25 | Observation (INO) | payer OTHER ==
[2022-07-05 01:52] LABS: BASO % 1.4 % (0-2.0); EOS % 9.7 % (0-4.5); HEMATOCRIT 34.2 % (35.4-49); HEMOGLOBIN 11.4 GM/dL (11.7-16.9); LYMPH % 19.5 % (8-40); MCH 25.9 pg (25.7-33.7); MCHC 33.4 g/dl (32.0-35.9); MEAN CELL VOLUME 77.6 fl (80-96); MEAN PLT VOLUME 7.1 fl (7.5-11.1); MONO % 9.9 % (3.8-10.2); NEUT % 59.5 % (42.8-82.8); PLATELET COUNT 135 10^3/uL (134-434); RDW 19.2 % (11.9-15.9); WHITE BLOOD COUNT 4.5 K/mm3 (4.0-10.0)
[2022-07-05 02:50] LABS: CHLORIDE 101 mmol/L (98-107); POTASSIUM 5.6 mmol/L (3.5-5.1); SODIUM 139 mmol/L (136-145)
[2022-07-05 02:52] LABS: ANION GAP 12 MMOL/L (8-16); CALCIUM 8.7 mg/dL (8.5-10.1); CO2 27 mmol/L (21-32); GLUCOSE,RANDOM 96 mg/dL (74-106)
[2022-07-05 02:55] LABS: SGOT/AST 28 U/L (15-37)
[2022-07-05] MEDS ORDERED: SODIUM ZIRCONIUM CYCLOSILICATE (LOKELMA) 5 GM PACKET PO ONE ×2 (02:55→04:01)
[2022-07-05 02:57] LABS: TOT PROT 6.9 g/dl (6.4-8.2)
[2022-07-05 02:58] LABS: ALK PHOS 111 U/L (45-117)
[2022-07-05] MEDS ORDERED: CALCIUM GLUCONATE 10% - 1,000 MG/10 ML VIAL IVPB ONE (02:59)
[2022-07-05 03:16] LABS: BILIRUBIN,TOTAL 0.5 mg/dL (0.2-1); BLOOD UREA NITROGEN 76.8 mg/dL (7-18); CREATININE 12.1 mg/dL (0.55-1.3); MAGNESIUM 2.3 mg/dL (1.8-2.4); PHOSPHOROUS 7.7 mg/dL (2.5-4.9); SGPT/ALT 38 U/L (13-61)
[2022-07-05] MEDS ORDERED: CALCIUM GLUC IN NACL, ISO-OSM 1 GM/50 ML BAG IVPB ONE (03:24)
[2022-07-05] MEDS ORDERED: SODIUM ZIRCONIUM CYCLOSILICATE (LOKELMA) 5 GM PACKET PO SCH (04:15)
[2022-07-05 04:53] VITALS: BMI 31.4
[2022-07-05] MEDS: HEPARIN NA (PORCINE) 5,000 UNITS/ML 1ML VIAL SQ SCH ×2 (05:19→14:01)
[2022-07-05] MEDS: INSULIN SLIDING SCALE (NOVOLOG) 1 VIAL SQ SCH ×2 (06:40→13:13)
[2022-07-05] MEDS ORDERED: SODIUM CHLORIDE 250 ML IV PRN (06:57)
[2022-07-05 08:48] VITALS: RESP 18
[2022-07-05] MEDS ORDERED: PANTOPRAZOLE 40 MG TABLET PO SCH (10:00)
[2022-07-05] MEDS ORDERED: LACTOBACILLUS ACIDOPHILUS 1 TABLET PO SCH (10:00)
[2022-07-05] MEDS ORDERED: NIFEdipine E.R 60 MG TABLET PO SCH (10:00)
[2022-07-05] MEDS ORDERED: MINOXIDIL 10 MG TABLET PO SCH (10:00)
[2022-07-05] MEDS: CALCIUM ACETATE 667 MG CAPSULE (FP) PO SCH ×2 (10:12→14:01)
[2022-07-05 12:57] VITALS: BP 121/81; PULSE 87
[2022-07-05 13:43] VITALS: TEMP 98.2
[2022-07-05 14:05] LABS: CALCIUM 8.7 mg/dL (8.5-10.1); POTASSIUM 3.9 mmol/L (3.5-5.1)
[2022-07-05 14:09] LABS: CREATININE 6.7 mg/dL (0.55-1.3); PHOSPHOROUS 3.5 mg/dL (2.5-4.9)
[2022-07-05 14:10] LABS: BLOOD UREA NITROGEN 31.2 mg/dL (7-18)
== END 2022-07-05 14:49 | disposition home or self-care (01) ==
LOC: JER 00:25 → JERBED 00:57 → J7W 04:38
PROVIDERS: ADMIT Internal Medicine
PROC: 3E033GC Introduction of Other Therapeutic Substance into Peripheral Vein, Percutaneous Approach (ICD-10-PCS; principal; 2022-07-05)
PROC: 3E023GC Introduction of Other Therapeutic Substance into Muscle, Percutaneous Approach (ICD-10-PCS; 2022-07-05)
DX: Z99.2 Dependence on renal dialysis (principal); E11.22 Type 2 diabetes mellitus with diabetic chronic kidney disease; I12.0 Hypertensive chronic kidney disease with stage 5 chronic kidney disease or end stage renal disease; N18.6 End stage renal disease; E78.5 Hyperlipidemia, unspecified; N20.0 Calculus of kidney
CPT/HCPCS: 36415; 80048; 80053; 82962; 83735; 84100; 85025; 93005; 93010; 99285-25; C9803-CS; G0378; J1644; U0003; U0005

== ENCOUNTER 2022-09-15 04:57 | Observation (INO) | payer OTHER ==
[2022-09-15 05:07] VITALS: BMI 30.9
[2022-09-15 06:23] LABS: BASO % 1.4 % (0-2.0); EOS % 4.2 % (0-4.5); HEMATOCRIT 34.4 % (35.4-49); HEMOGLOBIN 11.9 GM/dL (11.7-16.9); LYMPH % 23.5 % (8-40); MCH 28.4 pg (25.7-33.7); MCHC 34.5 g/dl (32.0-35.9); MEAN CELL VOLUME 82.3 fl (80-96); MEAN PLT VOLUME 7.7 fl (7.5-11.1); MONO % 10.3 % (3.8-10.2); NEUT % 60.6 % (42.8-82.8); PLATELET COUNT 137 10^3/uL (134-434); RBC 4.18 M/mm3 (4.00-5.60); RDW 15.5 % (11.9-15.9); WHITE BLOOD COUNT 4.6 K/mm3 (4.0-10.0)
[2022-09-15 06:44] LABS: CHLORIDE 99 mmol/L (98-107); POTASSIUM 5.3 mmol/L (3.5-5.1); SODIUM 138 mmol/L (136-145)
[2022-09-15 06:47] LABS: ALBUMIN 3.5 g/dl (3.4-5.0); ANION GAP 13 MMOL/L (8-16); CALCIUM 8.5 mg/dL (8.5-10.1); CO2 26 mmol/L (21-32); GLUCOSE,RANDOM 135 mg/dL (74-106); MAGNESIUM 2.4 mg/dL (1.8-2.4)
[2022-09-15 06:50] LABS: PHOSPHOROUS 7.8 mg/dL (2.5-4.9); SGOT/AST 8 U/L (15-37); SGPT/ALT 27 U/L (13-61)
[2022-09-15 06:52] LABS: BILIRUBIN,TOTAL 0.4 mg/dL (0.2-1); TOT PROT 7.2 g/dl (6.4-8.2)
[2022-09-15 06:53] LABS: ALK PHOS 117 U/L (45-117)
[2022-09-15 06:56] LABS: CREATININE 13.5 mg/dL (0.55-1.3)
[2022-09-15] MEDS ORDERED: SODIUM ZIRCONIUM CYCLOSILICATE (LOKELMA) 5 GM PACKET PO SCH (09:00)
[2022-09-15 09:03] VITALS: RESP 18; TEMP 98.1
[2022-09-15] MEDS ORDERED: NIFEdipine E.R 60 MG TABLET PO SCH (10:00)
[2022-09-15] MEDS ORDERED: PANTOPRAZOLE 40 MG TABLET PO SCH (10:00)
[2022-09-15] MEDS ORDERED: INSULIN SLIDING SCALE (NOVOLOG) 1 VIAL SQ SCH (11:00)
[2022-09-15] MEDS ORDERED: CALCIUM ACETATE 667 MG CAPSULE (FP) PO SCH (12:00)
[2022-09-15 12:22] VITALS: BP 153/97; PULSE 99
[2022-09-16] MEDS ORDERED: SODIUM ZIRCONIUM CYCLOSILICATE (LOKELMA) 5 GM PACKET PO SCH (10:00)
== END 2022-09-15 13:20 | disposition left against medical advice (07) ==
LOC: JER 04:57 → JERBED 07:10
PROVIDERS: ADMIT Internal Medicine; ATTEND Internal Medicine
DX: K74.60 Unspecified cirrhosis of liver (principal); N18.6 End stage renal disease; E11.9 Type 2 diabetes mellitus without complications; Z87.891 Personal history of nicotine dependence; K57.92 Diverticulitis of intestine, part unspecified, without perforation or abscess without bleeding
CPT/HCPCS: 36415; 80053; 83735; 84100; 85025; 93005; 93010; 99285-25; G0378

== ENCOUNTER 2022-09-18 06:23 | Observation (INO) | payer OTHER ==
[2022-09-18] MEDS ORDERED: SODIUM CHLORIDE 250 ML IV PRN (07:36)
[2022-09-18 08:31] LABS: BASO % 1.4 % (0-2.0); EOS % 5.8 % (0-4.5); HEMATOCRIT 35.8 % (35.4-49); HEMOGLOBIN 12.1 GM/dL (11.7-16.9); LYMPH % 20.8 % (8-40); MCH 28.1 pg (25.7-33.7); MCHC 33.8 g/dl (32.0-35.9); MEAN CELL VOLUME 83.3 fl (80-96); MEAN PLT VOLUME 7.8 fl (7.5-11.1); MONO % 8.9 % (3.8-10.2); NEUT % 63.1 % (42.8-82.8); PLATELET COUNT 141 10^3/uL (134-434); RDW 15.1 % (11.9-15.9); WHITE BLOOD COUNT 4.2 K/mm3 (4.0-10.0)
[2022-09-18 08:44] LABS: CHLORIDE 98 mmol/L (98-107); POTASSIUM 5.6 mmol/L (3.5-5.1); SODIUM 137 mmol/L (136-145)
[2022-09-18 08:45] LABS: ANION GAP 14 MMOL/L (8-16); CO2 25 mmol/L (21-32); GLUCOSE,RANDOM 96 mg/dL (74-106)
[2022-09-18 08:46] LABS: ALBUMIN 3.6 g/dl (3.4-5.0); CALCIUM 8.8 mg/dL (8.5-10.1); MAGNESIUM 2.9 mg/dL (1.8-2.4)
[2022-09-18 08:49] LABS: SGPT/ALT 26 U/L (13-61)
[2022-09-18 08:51] LABS: BILIRUBIN,TOTAL 0.4 mg/dL (0.2-1); TOT PROT 7.5 g/dl (6.4-8.2)
[2022-09-18 08:52] LABS: ALK PHOS 122 U/L (45-117)
[2022-09-18 08:53] LABS: SGOT/AST 12 U/L (15-37)
[2022-09-18 08:58] LABS: CREATININE 16.1 mg/dL (0.55-1.3)
[2022-09-18 13:23] VITALS: BP 151/86; PULSE 81; RESP 20; TEMP 97.8; BMI 29.7
== END 2022-09-18 13:45 | disposition home or self-care (01) ==
LOC: JER 06:23 → JERBED 08:09 → J6S 12:48
PROVIDERS: ADMIT Internal Medicine; ATTEND Internal Medicine
DX: N18.6 End stage renal disease (principal); Z99.2 Dependence on renal dialysis; R06.02 Shortness of breath; N20.0 Calculus of kidney; E78.00 Pure hypercholesterolemia, unspecified; E11.9 Type 2 diabetes mellitus without complications; Z87.891 Personal history of nicotine dependence; K92.9 Disease of digestive system, unspecified; E87.5 Hyperkalemia
CPT/HCPCS: 36415; 80053; 83735; 85025; 93005; 93010; 99285-25; G0378

== ENCOUNTER 2022-09-20 07:14 | Day surgery (SDC) | payer OTHER ==
[2022-09-20 07:24] VITALS: BMI 30.9
[2022-09-20] MEDS ORDERED: SODIUM CHLORIDE 250 ML IV PRN (07:58)
[2022-09-20] MEDS ORDERED: ACETAMINOPHEN 325 MG TABLET (FP) PO PRN (08:16)
[2022-09-20 08:17] LABS: BASO % 1.8 % (0-2.0); EOS % 6.5 % (0-4.5); HEMATOCRIT 37.9 % (35.4-49); INR 1.03 (0.83-1.09); MCH 28.2 pg (25.7-33.7); MCHC 34.2 g/dl (32.0-35.9); MEAN CELL VOLUME 82.4 fl (80-96); MEAN PLT VOLUME 7.4 fl (7.5-11.1); NEUT % 57.7 % (42.8-82.8); PLATELET COUNT 148 10^3/uL (134-434); PROTHROMBIN TIME (PATIENT) 11.9 SEC (9.7-13.0); RDW 15.2 % (11.9-15.9); WHITE BLOOD COUNT 4.5 K/mm3 (4.0-10.0)
[2022-09-20 08:20] LABS: ACTIVATED PTT 32.6 SECONDS (25.2-36.5)
[2022-09-20 08:31] LABS: CHLORIDE 99 mmol/L (98-107); SODIUM 138 mmol/L (136-145)
[2022-09-20 08:34] LABS: CALCIUM 9.1 mg/dL (8.5-10.1)
[2022-09-20 08:35] LABS: ALBUMIN 3.7 g/dl (3.4-5.0); CO2 25 mmol/L (21-32); GLUCOSE,RANDOM 87 mg/dL (74-106); MAGNESIUM 2.9 mg/dL (1.8-2.4)
[2022-09-20 08:38] LABS: SGOT/AST 14 U/L (15-37); SGPT/ALT 32 U/L (13-61)
[2022-09-20 08:40] LABS: BILIRUBIN,TOTAL 0.4 mg/dL (0.2-1); BLOOD UREA NITROGEN 84.7 mg/dL (7-18)
[2022-09-20 08:41] LABS: ALK PHOS 123 U/L (45-117)
[2022-09-20 09:13] LABS: ANION GAP 13 MMOL/L (8-16); CREATININE 14.5 mg/dL (0.55-1.3); PHOSPHOROUS 8.4 mg/dL (2.5-4.9); POTASSIUM 6.1 mmol/L (3.5-5.1)
[2022-09-20] MEDS ORDERED: NIFEdipine E.R 60 MG TABLET PO SCH (10:00)
[2022-09-20 10:46] LABS: CHLORIDE 99 mmol/L (98-107); POTASSIUM 5.6 mmol/L (3.5-5.1); SODIUM 137 mmol/L (136-145)
[2022-09-20 10:47] LABS: CALCIUM 8.7 mg/dL (8.5-10.1)
[2022-09-20 10:48] LABS: ANION GAP 12 MMOL/L (8-16); BLOOD UREA NITROGEN 71.6 mg/dL (7-18); CO2 27 mmol/L (21-32); GLUCOSE,RANDOM 91 mg/dL (74-106)
[2022-09-20] MEDS ORDERED: INSULIN SLIDING SCALE (NOVOLOG) 1 VIAL SQ SCH (11:00)
[2022-09-20 11:23] LABS: CREATININE 11.8 mg/dL (0.55-1.3)
[2022-09-20 13:27] VITALS: BP 144/79; PULSE 82; RESP 16; TEMP 98.3
== END 2022-09-20 14:00 | disposition home or self-care (01) ==
LOC: JER 07:14 → JERBED 07:39 → UNDOADMOB 07:39 → JASUSAT 08:16
PROVIDERS: ATTEND Student in an Organized Health Care Education/Training Program
PROC: 3E1M39Z Irrigation of Peritoneal Cavity using Dialysate, Percutaneous Approach (ICD-10-PCS; principal; 2022-09-20)
DX: I12.0 Hypertensive chronic kidney disease with stage 5 chronic kidney disease or end stage renal disease (principal); N18.6 End stage renal disease; N17.9 Acute kidney failure, unspecified; Z99.2 Dependence on renal dialysis
CPT/HCPCS: 36415; 80048; 80053; 83735; 84100; 85025; 85610; 85730; 93005; 93010; 99285-25

== ENCOUNTER 2022-12-08 06:39 | Observation (INO) | payer OTHER ==
[2022-12-08 06:50] VITALS: RESP 18; BMI 30.5
[2022-12-08 08:22] LABS: CHLORIDE 98 mmol/L (98-107); SODIUM 137 mmol/L (136-145)
[2022-12-08 08:24] LABS: CALCIUM 8.5 mg/dL (8.5-10.1)
[2022-12-08 08:25] LABS: ALBUMIN 3.7 g/dl (3.4-5.0); ANION GAP 10 MMOL/L (8-16); BLOOD UREA NITROGEN 65.5 mg/dL (7-18); CO2 29 mmol/L (21-32); GLUCOSE,RANDOM 117 mg/dL (74-106)
[2022-12-08 08:28] LABS: SGOT/AST 7 U/L (15-37); SGPT/ALT 19 U/L (13-61)
[2022-12-08 08:30] LABS: BILIRUBIN,TOTAL 0.4 mg/dL (0.2-1); TOT PROT 7.2 g/dl (6.4-8.2)
[2022-12-08] MEDS ORDERED: SODIUM CHLORIDE 250 ML IV PRN (08:31)
[2022-12-08 08:32] LABS: ALK PHOS 94 U/L (45-117)
[2022-12-08 08:33] LABS: CREATININE 14.8 mg/dL (0.55-1.3)
[2022-12-08 08:48] LABS: BASO % 1.2 % (0-2.0); EOS % 4.1 % (0-4.5); HEMATOCRIT 40.1 % (35.4-49); HEMOGLOBIN 13.6 GM/dL (11.7-16.9); LYMPH % 23.1 % (8-40); MCH 29.2 pg (25.7-33.7); MCHC 33.9 g/dl (32.0-35.9); MEAN PLT VOLUME 7.7 fl (7.5-11.1); MONO % 9.7 % (3.8-10.2); NEUT % 61.9 % (42.8-82.8); PLATELET COUNT 139 10^3/uL (134-434); RBC 4.66 M/mm3 (4.00-5.60); RDW 14.2 % (11.9-15.9); WHITE BLOOD COUNT 3.7 K/mm3 (4.0-10.0)
[2022-12-08] MEDS ORDERED: NIFEdipine E.R 60 MG TABLET PO SCH (10:00)
[2022-12-08] MEDS ORDERED: CALCIUM ACETATE 667 MG CAPSULE (FP) PO SCH (12:00)
[2022-12-08 13:42] VITALS: TEMP 97.9
[2022-12-08 14:02] VITALS: BP 122/74; PULSE 70
== END 2022-12-08 14:16 | disposition home or self-care (01) ==
LOC: JER 06:39 → JERBED 08:41
PROVIDERS: ADMIT Internal Medicine; ATTEND Internal Medicine
DX: N18.6 End stage renal disease (principal); I12.0 Hypertensive chronic kidney disease with stage 5 chronic kidney disease or end stage renal disease; E11.22 Type 2 diabetes mellitus with diabetic chronic kidney disease; Z99.2 Dependence on renal dialysis; E78.00 Pure hypercholesterolemia, unspecified; Z87.891 Personal history of nicotine dependence; K74.60 Unspecified cirrhosis of liver; N28.9 Disorder of kidney and ureter, unspecified; K57.90 Diverticulosis of intestine, part unspecified, without perforation or abscess without bleeding
CPT/HCPCS: 36415; 80053; 85025; 86704; 86803; 87340; 87517; 93005; 93010; 99285-25; G0378

== ENCOUNTER 2024-02-25 04:11 | Observation (INO) | payer OTHER ==
[2024-02-25 04:22] VITALS: BMI 34.2
[2024-02-25 05:30] LABS: INR 1.04 (0.83-1.09); PROTHROMBIN TIME (PATIENT) 11.9 SEC (9.7-13.0)
[2024-02-25 05:33] LABS: ACTIVATED PTT 37.1 SECONDS (25.2-36.5)
[2024-02-25 06:01] LABS: CHLORIDE 98 mmol/L (98-107); POTASSIUM 5.2 mmol/L (3.5-5.1); SODIUM 137 mmol/L (136-145)
[2024-02-25 06:03] LABS: CALCIUM 9.1 mg/dL (8.5-10.1)
[2024-02-25 06:04] LABS: ALBUMIN 4.1 g/dl (3.4-5.0); ANION GAP 13 mmol/L (4-13); BLOOD UREA NITROGEN 93.5 mg/dL (7-18); CO2 27 mmol/L (21-32); GLUCOSE,RANDOM 100 mg/dL (74-106); MAGNESIUM 2.7 mg/dL (1.8-2.4)
[2024-02-25 06:07] LABS: SGOT/AST 5 U/L (15-37); SGPT/ALT 15 U/L (13-61)
[2024-02-25 06:08] LABS: BILIRUBIN,TOTAL 0.5 mg/dL (0.2-1); TOT PROT 7.9 g/dl (6.4-8.2)
[2024-02-25 06:10] LABS: ALK PHOS 121 U/L (45-117)
[2024-02-25 06:35] LABS: PHOSPHOROUS 8.2 mg/dL (2.5-4.9)
[2024-02-25 07:07] LABS: BASO % 0.8 % (0-2.0); EOS % 6.2 % (0-4.5); HEMATOCRIT 37.6 % (35.4-49); HEMOGLOBIN 12.8 GM/dL (11.7-16.9); LYMPH % 18.6 % (8-40); MCH 28.7 pg (25.7-33.7); MCHC 34.1 g/dl (32.0-35.9); MEAN CELL VOLUME 84.2 fl (80-96); MONO % 8.2 % (3.8-10.2); NEUT % 66.2 % (42.8-82.8); PLATELET COUNT 140 10^3/uL (134-434); RBC 4.46 M/mm3 (4.00-5.60); WHITE BLOOD COUNT 3.9 K/mm3 (4.0-10.0)
[2024-02-25] MEDS ORDERED: SODIUM CHLORIDE 250 ML IV PRN ×2 (07:41→17:08)
[2024-02-25] MEDS: HEPARIN NA (PORCINE) 5,000 UNITS/ML 1ML VIAL IVPUSH ONE ×2 (08:13→17:50)
[2024-02-25] MEDS ORDERED: CALCIUM ACETATE 667 MG CAPSULE (FP) PO SCH (08:45)
[2024-02-25] MEDS ORDERED: CLOPIDOGREL BISULFATE 75 MG TABLET (FP) ONE (09:45)
[2024-02-25] MEDS ORDERED: NIFEdipine E.R 60 MG TABLET PO ONE (09:46)
[2024-02-25] MEDS: CLOPIDOGREL BISULFATE 75 MG TABLET (FP) PO SCH (09:57)
[2024-02-25] MEDS: MINOXIDIL 10 MG TABLET PO SCH (09:57)
[2024-02-25] MEDS: NIFEdipine E.R 60 MG TABLET PO SCH (09:58)
[2024-02-25] MEDS: CALCIUM ACETATE 667 MG CAPSULE (FP) PO SCH (13:56)
[2024-02-25] MEDS ORDERED: HEPARIN NA (PORCINE) 5,000 UNITS/ML 1ML VIAL SQ SCH (14:00)
[2024-02-25 18:49] VITALS: BP 133/73; PULSE 68; RESP 17; TEMP 98.1
[2024-02-25] MEDS ORDERED: ZOLPIDEM TARTRATE 5 MG TABLET PO PRN (22:00)
== END 2024-02-26 03:36 | disposition home or self-care (01) ==
LOC: JER 04:11 → JERBED 04:20
PROVIDERS: ADMIT Internal Medicine; ATTEND Student in an Organized Health Care Education/Training Program
DX: Z76.89 Persons encountering health services in other specified circumstances (principal); E11.22 Type 2 diabetes mellitus with diabetic chronic kidney disease; N18.6 End stage renal disease; Z99.2 Dependence on renal dialysis; E87.5 Hyperkalemia; E83.39 Other disorders of phosphorus metabolism; E83.41 Hypermagnesemia
CPT/HCPCS: 36415; 71045-TC-FY; 80053; 83735; 84100; 85025; 85610; 85730; 86803; 86850; 86900; 86901; 87340; 93005; 93010; 96372; 96374; 96376; 99285-25; G0378; J1644